=== PATIENT | male | born 1990 | race Two or more races ===

== ENCOUNTER 2019-04-13 00:02 | Emergency (ER) | payer SELFPAY ==
[~2019-04-13] VITALS: Ht 170.2 cm; Wt 74.8 kg
[2019-04-13 02:25] VITALS: BP 119/58
== END 2019-04-13 03:35 | disposition left against medical advice (07) ==
LOC: ER 00:09
DX: S01.511A Laceration without foreign body of lip, initial encounter (principal); Z53.21 Procedure and treatment not carried out due to patient leaving prior to being seen by health care provider; Y08.89XA Assault by other specified means, initial encounter; Y93.89 Activity, other specified; Y92.89 Other specified places as the place of occurrence of the external cause; Y99.8 Other external cause status
CPT/HCPCS: 70450; 70486

== ENCOUNTER 2025-05-03 23:20 | Emergency (ER) | payer MEDICAID, OTHER ==
[~2025-05-03] VITALS: Ht 172.7 cm; Wt 81.8 kg
[2025-05-03] MEDS: HYDROcodone-ACET 10/325MG TAB PO ONE (23:45)
--- NOTE | 2025-05-04 00:35 | DVH ---
CLINICAL INDICATION: Twist trauma TECHNIQUE: XY R KNEE 3V XRAY Comparison: None FINDINGS: No evidence of acute fracture or dislocation. Joint spaces are normal. Prior ORIF of right tibial fra cture. Old/healed fracture of right proximal fibula. IMPRESSION: No evidence of acute fracture or dislocation.
[2025-05-04] MEDS ORDERED: IBUP-1455 PO (01:23)
[2025-05-04] MEDS ORDERED: HYDR-4902 PO (01:23)
--- NOTE | 2025-05-04 01:24 | ED.PDOC ---
Musculoskeletal HPI Comments Patient is a pleasant 38-year-old male who arrives the ED today for evaluation of right knee concerns. Patient was at a concert earlier with a friend on his shoulders when his right knee buckled causing him to follow up with the ground. Patient states he heard a pop and subsequently, can not bear weight or bend his knee. Patient denies any history of knee concerns. Chief Complaint: Lower Extremity Time Seen by MD: 23:23 Reviewed Notes: Nurses Notes Allergies: Coded Allergies: NO KNOWN ALLERGIES (Unverified , 04/13/19) Information Source: Patient, Friend Mode of Arrival: Wheelchair Location: Right Extremity Location: Knee Timing: Hours Prehospital treatment: None Severity: Moderate Able to Move Extremity: No Bear Weight: No Pain: Moderate Hand Dominance: Right Mechanism: Twisting Circumstances: Sporting Onset of Symptoms: After Trauma Symptoms: Swelling, Pain DVT Risk Factors: NONE Past Medical History PAST MEDICAL HISTORY: Denies Surgical History: Denies all surgeries Family History Family History: Reviewed,noncontributory to illness, No family hx of Cancer, No family hx of DM, No family hx of Heart makayla, No family hx of HTN, No family hx ofKidney makayla, No family hx of Liver makayla, No family hx of Lung makayla, No family hx of Stroke Social History Smoker: Non-Smoker Alcohol: Denies ETOH Use Drugs: Denies Drug Use Lives In: Home Constitutional: denies: chills, diaphoresis, fatigue, fever, malaise, sweats, weakness, others EENTM: denies: blurred vision, double vision, ear bleeding, ear discharge, ear drainage, ear pain, ear ringing, eye pain, eye redness, hearing loss, mouth pain, mouth swelling, nasal discharge, nose bleeding, nose congestion, nose pain, photophobia, tearing, throat pain, throat swelling, voice changes, others Respiratory: denies: cough, hemoptysis, orthopnea, SOB at rest, shortness of breath, SOB with excertion, stridor, wheezing, others Cardiovascular: denies: chest pain, dizzy spells, diaphoresis, Dyspnea on exertion, edema, irregular heart beat, left arm pain, lightheadedness, palpitations, PND, syncope, others Gastrointestinal: denies: abdomen distended, abdominal pain, blood streaked bowels, constipated, diarrhea, dysphagia, difficulty swallowing, hematemesis, melena, nausea, poor appetite, poor fluid intake, rectal bleeding, rectal pain, vomiting, others Genitourinary: denies: burning, dysuria, flank pain, frequency, hematuria, i ncontinence, penile discharge, penile sore, pain, testicle pain, testicle swelling, urgency, others Neurological: denies: dizziness, fainting, headache, left sided numbness, left sided weakness, numbness, paresthesia, pre-existing deficit, right sided numbness, right sided weakness, seizure, speech problems, tingling, tremors, weakness, others Musculoskeletal: reports: others (Right knee pain); denies: back pain, gout, joint pain, joint swelling, muscle pain, muscle stiffness, neck pain Integumetry: denies: bruises, change in color, change in hair/nails, dryness, laceration, lesions, lumps, rash, wounds, others Allergic/Immunocompromised: denies: Difficulty Healing, Frequent Infections, Hives, Itching, others Hematologic/Lymphatic: denies: anemia, blood clots, easy bleeding, easy bruising, swollen glands, others Endocrine: denies: excessive hunger, excessive sweating, excessive thirst, excessive urination, flushing, intolerance to cold, intolerance to heat, unexplained weight gain, unexplained weight loss, others Psychiatric: denies: anxiety, bipolar disorder, depression, hopeless, panic disorder, schizophrenia, sleepless, suicidal, others Physical Exam General Appearance: Moderate Distress (Due to right knee pain concerns.), Normal HEENT: Normal ENT Inspection, Pharynx Normal, TMs Normal Neck: Full Range of Motion, Non-Tender, Normal, Normal Inspection Respiratory: Chest Non-Tender, Lungs Clear, No Accessory Muscle Use, No Respiratory Distress, Normal Breath Sounds Cardiovascular: No Edema, No JVD, No Murmur, No Gallop, Normal Peripheral Pulses, Regular Rate/Rhythm Breast Exam: Deferred Gastrointestinal: No Organomegaly, Non Tender, No Pulsatile Mass, Normal Bowel Sounds, Soft Genitalia: Deferred Pelvic: Deferred Rectal: Deferred Extremities: Other (Diffuse medial and lateral right knee tenderness to palpation. Significant reduced range of motion. Negative drawer sign. Patient is unable to bear weight.) Neurologic: Alert, No Motor Deficits, Normal Affect, Normal Mood, No Sensory Deficits Cerebellar Function: Normal Reflexes: Normal Skin: Dry, Normal Color, Warm Lymphatic: No Adenopathy Was a procedure done? Was a procedure done?: No Differential Diagnosis EXT Differential Diagnosis: Fracture, Sprain, Contusion, Strain X-Ray, Labs, Meds, VS Vital Signs Date Time Temp Pulse Resp B/P (MAP) Pulse Ox O2 Delivery O2 Flow Rate FiO2 05/04/25 00:30 97.8 96 16 138/82 (100) 99 97.8 05/03/25 23:43 99.4 100 20 130/62 (84) 97 99.4 Current Medications Medications (Trade) Dose Ordered Sig/Adrián Route Start Time Stop Time Status Last Admin Acetaminophen/ Hydrocodone Bitart (Richey 10/325MG Tab) 1 tab ONCE ONCE PO 05/03/25 23:45 05/03/25 23:46 DC 05/03/25 23:45 X-Ray, Labs, Meds, VS Comment All studies performed the ED were evaluated by me personally. Imaging studies of the right knee were unremarkable for any acute fractures. Patient appears to have sustained a knee sprain. If symptoms continue, patient will need to follow up with the primary care provider for continued evaluation and management. Patient may require an MRI evaluation. Time of 1ST Reevaluation: Reevaluation 1ST: Improved Consultation: PCP Patient Education/Counseling: Diagnosis, Treatment Family Education/Counseling: Diagnosis, Treatment Sepsis Recent Procedure: No On Antibiotic Therapy: No Respiratory Rate >20: No Heart Rate >90: No Temp<36 C (96.8 F) or >38.3 C: No SBP <90 or MAP <65 mmHG: No New Acute Mental Status Change: No Is the patient on CPAP, BIPAP,: No IV fluid given: No Departure 1 Departure Time of Disposition: : Impression: Primary Impression: Right knee sprain Disposition: HOME / SELF CARE / HOMELESS Condition: Stable Additional Instructions: Advised pain medication as needed for symptomatic relief as well as ice therapy. If symptoms continue, patient will need to follow up with the primary care provider for continued evaluation and management. e-Prescriptions Hydrocodone-Acetaminophen (Hydrocodone Bitartrate/AC 5-325 mg) 1 Tab Tab 1 TAB PO Q6HP PRN, #15 TAB Prov: VALORIE JERRY PAC 05/04/25 Ibuprofen Micronized (Ibuprofen) 800 Mg Tab 800 MG PO Q8HP PRN, #20 TAB Prov: VALORIE JERRY PAC 05/04/25 Discharged With: Self, Friend Critical Care Note Critical Care Time?: No Stability Stability form required: No Heart Score Heart Score: Heart Score Response (Comments) Value History N/A 0 EKG N/A 0 Age N/A 0 Risk Factors N/A 0 Troponin N/A 0 Total 0 VALORIE JERRY PAC May 04, 2025 01:24
[2025-05-04 02:05] VITALS: BP 110/75; PULSE 89; RESP 19; TEMP 99.5; O2SAT 96
== END 2025-05-04 02:08 | disposition home or self-care (01) ==
LOC: ER 23:20
DX: S83.91XA Sprain of unspecified site of right knee, initial encounter (principal); X58.XXXA Exposure to other specified factors, initial encounter; Y93.89 Activity, other specified; Y92.89 Other specified places as the place of occurrence of the external cause; Y99.8 Other external cause status
CPT/HCPCS: 29505; 73562